=== PATIENT | male | born 1970 | race Caucasian/White ===

== ENCOUNTER → 2019-06-17 | Day surgery (SDC) | payer OTHER ==
[~2019-06-17] VITALS: Ht 193 cm; Wt 85.3 kg
[~2019-06-17] MED LIST: TRAMADOL HCL50 MG PO
[2019-06-17 06:40] VITALS: BP 124/80
[2019-06-17 09:00] VITALS: BP 98/57
[2019-06-17 09:14] VITALS: BP 105/59
[2019-06-17 09:30] VITALS: BP 109/76
== END | disposition home or self-care (01) ==
LOC: SDC 06-13 13:15
DX: R22.1 Localized swelling, mass and lump, neck (principal); L72.0 Epidermal cyst; Z98.890 Other specified postprocedural states; Z82.49 Family history of ischemic heart disease and other diseases of the circulatory system